=== PATIENT | female | born 1995 | race Caucasian/White ===

== ENCOUNTER 2020-12-17 07:59 | Inpatient (IN) ==
--- NOTE | 2020-12-17 11:05 | Obstetrical Progress Note ---
Date of Service December 17, 2020 Assessment & Plan (1) with 36 completed weeks gestation: (2) Uterine contractions: Plan: Will continue to monitor for labor. Discussed that can't encourage labor at this point but if she demonstrates cervical change, that is labor and will admit. She notes contractions rate a 6/10 currently. vertex by ultrasound. Will continue to monitor. fetus category one. Subjective Patient is a 25yowf who presents at 36 4/7 weeks with bleeding, passing small clots and cramping. hx significant for 36 week delivery that was rapid and presented quickly after srom. essentially uncomplicated. Declined gregoria. GBS negative. Physical Exam Physical Exam: cx--3-4/50/-2, bloody show, unchanged over two hours toco--q3-5min efm--130s with mod variaiblity, accels to 150s, no decels Results & Data ([facility]) Vital Signs (Past 12 Hours) Vital Signs Temp Pulse Resp BP 12/17/20 08:14 37.0 C 18 12/17/20 08:11 115 H 134/95 PG Care Time/CCT Total # of Minutes Spent Total Time Spent with Patient: Total time spent is greater than 50% in coordination of care (as documented) at patient's floor/unit and/or counseling patient: Coding Level of Care Code None Diagnoses with 36 completed weeks gestation Z3A.36 Uterine contractions O47.9
--- NOTE | 2020-12-17 12:39 | Obstetrical Progress Note ---
Date of Service December 17, 2020 Assessment & Plan (1) Uterine contractions: (2) with 36 completed weeks gestation: Plan: this may be a very small change but not enough to call active labor. Recommend recheck in 2 hours. Currently offered iv hydration and morphine rest. Neither would stop real labor but may take edge off contractions. She declines morphine and will take fluid bolus. REcheck in 2 hours. Subjective Paitent notes contractions getting more uncomfortable Physical Exam Physical Exam: cx--4/50/-2 toco--q3-5min efm--category one Results & Data ([facility]) Vital Signs (Past 12 Hours) Vital Signs Temp Pulse Resp BP 12/17/20 11:06 36.9 C 96 H 18 110/74 12/17/20 08:14 37.0 C 18 12/17/20 08:11 115 H 134/95 PG Care Time/CCT Total # of Minutes Spent Total Time Spent with Patient: Total time spent is greater than 50% in coordination of care (as documented) at patient's floor/unit and/or counseling patient: Coding Level of Care Code None Diagnoses Uterine contractions O47.9 with 36 completed weeks gestation Z3A.36
[2020-12-17] MEDS ORDERED: LACTATED RINGER'S 1,000 ML IV PRN (12:50)
[2020-12-17] MEDS ORDERED: OXYTOCIN 30 UNITS/500 ML BAG IV PRN ×2 (14:37→22:37)
--- NOTE | 2020-12-17 14:40 | Labor Progress Brief Note ---
Date of Service December 17, 2020 Subjective still uncomfortable with contractions Assessment & Plan (1) with 36 completed weeks gestation: (2) Uterine contractions: Plan: contractions have now made cervical change to qualify for active labor. Plan admit. gbs neg, check covid swab. Expectantly management. Make peds aware. anticipate . Fetus category one and reassuring. Physical Exam Physical Exam: cx--5/50/-2, bloody show toco--q3-5min efm--130s with accels to 150s, no decels Results & Data ([facility]) Vital Signs (Past 12 Hours) Vital Signs Temp Pulse Resp BP 12/17/20 11:06 36.9 C 96 H 18 110/74 12/17/20 08:14 37.0 C 18 12/17/20 08:11 115 H 134/95 Coding Level of Care Code None Diagnoses with 36 completed weeks gestation Z3A.36 Uterine contractions O47.9
[2020-12-17 15:08] LABS: Hematocrit (blood only) 38.1 % (37-47); Mean Corpuscular Hemoglobin 29.9 pg (25-34); Mean Corpuscular Hgb Conc 34.1 g/dL (32-36); Mean Corpuscular Volume 87.6 fL (80-100); Mean Platelet Volume 12.3 fL (7.4-10.4); Platelet Count 186 K/uL (130-400); RDW Coefficient of Variation 13.8 % (11.5-14.5); RDW Standard Deviation 44.2 fL (36.4-46.3); Red Blood Count 4.35 M/uL (4.2-5.4); White Blood Count 10.67 K/uL (4.8-10.8)
[2020-12-17] MEDS: LACTATED RINGER'S 1,000 ML IV PRN ×2 (15:40→20:45)
--- NOTE | 2020-12-17 17:55 | Labor Progress Brief Note ---
Date of Service December 17, 2020 Subjective notes contractions more painful, desires rom Assessment & Plan (1) with 36 completed weeks gestation: (2) Premature onset of labor: Plan: arom done, expectant management. fetus category one. anticipate . Admission and Anticipated Discharge Date Admission Date: December 17, 2020 Physical Exam Physical Exam: cx--5-6/75/-2 arom--clear toco--q3-5min, efm--120s with mod variability, accels to 150s, no decels Results & Data ([facility]) Vital Signs (Past 12 Hours) Vital Signs Temp Pulse Resp BP 12/17/20 15:10 36.6 C 16 12/17/20 15:08 91 H 124/75 12/17/20 11:06 36.9 C 96 H 18 110/74 12/17/20 08:14 37.0 C 18 12/17/20 08:11 115 H 134/95 Coding Level of Care Code None Diagnoses with 36 completed weeks gestation Z3A.36 Premature onset of labor O60.00
--- NOTE | 2020-12-17 20:23 | Labor Progress Brief Note ---
Date of Service December 17, 2020 Subjective getting very uncomfortable. Asking for pain meds. Assessment & Plan (1) Premature onset of labor: Plan: Discussed options for pain management. Will go with epidural. Fetus reassuring. Anticipate . Admission and Anticipated Discharge Date Admission Date: December 17, 2020 Physical Exam Physical Exam: cx--6/100/0 toco--q2-3min efm--category one. Results & Data ([facility]) Vital Signs (Past 12 Hours) Vital Signs Temp Pulse Resp BP 12/17/20 17:57 36.7 C 16 12/17/20 17:56 101 H 127/74 12/17/20 15:10 36.6 C 16 12/17/20 15:08 91 H 124/75 12/17/20 11:06 36.9 C 96 H 18 110/74 Coding Level of Care Code None Diagnoses Premature onset of labor O60.00
[2020-12-17] MEDS ORDERED: SODIUM CHLORIDE 0.9% INJ 10 ML VIAL ONE (20:26)
[2020-12-17] MEDS ORDERED: BUPIVACAINE 0.25% 30 ML VIAL ONE (20:26)
[2020-12-17] MEDS ORDERED: fentaNYL 2MCG/ML ROPIVACAINE 1.25MG/ML 100 ML BAG EPI ONE (20:26)
[2020-12-17] MEDS ORDERED: ePHEDrine sulfate 50 MG/ML AMP ONE (20:26)
--- NOTE | 2020-12-17 20:39 | Anesthesiology Consultation ---
Date of Service December 17, 2020 Assessment & Plan (1) Encounter for pre-operative examination: Chart Review Chart Review: Acceptable Risk for Labor Epidural Consults Requested none ASA ASA2 Proposed Anesthesia Anesthesia Type: Labor Epidural Risk / Benefits Reviewed With: PT / POA / Parent / Guardian, Accepts Plan and Informed Consent Obtained History Height/Weight Height: 5 ft 2 in Weight: 97.069 kg Allergies Allergy/AdvReac Type Severity Reaction Status Date / Time No Known Allergies Allergy Verified 12/14/20 16:18 Medications Home Medications Medication Instructions Recorded Confirmed Last Taken prenat.vits,sol,mfk-nwdw-rdeyz 1 tab PO PM 04/25/19 12/17/20 12/16/20 Active Medications Generic Name Dose Route Start Last Admin Trade Name Freq PRN Reason Stop Dose Admin Lactated Ringer's 1,000 mls @ 125 mls/hr 12/17/20 14:37 12/17/20 20:21 Lr IV 12/19/20 14:36 999 mls/hr .Q8H PRN Infusion L&D Protocol Protocol Past Medical History Medical History Attention deficit disorder Chronic constipation Exercise / Class Metabolic Activity II 4-5 Yardwork/Stairs/Walk up hill Past Family History Family History Grandfather (Maternal) Colorectal cancer Grandmother (Paternal) Myocardial infarction Denies family history of Ovarian cancer Prostate cancer Breast cancer Past Surgical History Surgical History Hx of tonsillectomy S/P nasal septoplasty S/P rhinoplasty Past Anesthesia History No Hx of Anesthesia Complications and No Family Hx of Anesthesia Complications History of PONV No Hx of PONV and No Hx of Motion Sickness Social History Smoking Status: Never smoker Hx Alcohol Use: No Hx Substance Use: No Physical Exam Vital Signs Last Vital Signs Temp 98.1 F 12/17/20 17:57 Pulse 98 H 12/17/20 20:25 Resp 16 12/17/20 17:57 BP 127/74 12/17/20 17:56 Pulse Ox 90 12/17/20 20:25 ENMT Mouth: no dentition abnormality Thyromental Distance: > or= 3.5 Finger Breadths Mallampati Class: II Neck normal visual inspection Respiratory normal respiratory effort Auscultation: lungs clear to auscultation bilaterally Cardiovascular Rate/Rhythm: regular rate and regular rhythm Testing Laboratory Results 12/17/20 14:43
[2020-12-17] MEDS: fentaNYL citrate 100 MCG/2 ML VIAL ONE ×2 (20:53→21:04)
[2020-12-17] MEDS ORDERED: NALBUPHINE HCL INJ 10 MG/ML AMP IV PRN (21:01)
[2020-12-17] MEDS ORDERED: fentaNYL 2MCG/ML ROPIVACAINE 1.25MG/ML 100 ML BAG EPI PRN (21:01)
[2020-12-17] MEDS ORDERED: ONDANSETRON INJ 2 MG/ML 2 ML VIAL IV PRN (21:01)
[2020-12-17] MEDS ORDERED: ePHEDrine sulfate 50 MG/ML AMP IV PRN (21:01)
[2020-12-17] MEDS ORDERED: NALOXONE HCL 0.4 MG/1 ML VIAL/CARP IV PRN (21:01)
[2020-12-17] MEDS ORDERED: diphenhydrAMINE 50 MG/ML VIAL IV PRN (21:01)
[2020-12-17] MEDS ORDERED: NALOXONE HCL 1 MG in SODIUM CHLORIDE 0.9% 1000ML 1,000 ML IV PRN (21:01)
--- NOTE | 2020-12-17 21:59 | Delivery Summary ---
Vaginal Delivery Summary Date of Service December 17, 2020 Pre-operative Diagnosis: at 36 4/7 weeks premature onset of labor Post-operative Diagnosis: same Procedure: arom epidural second degree laceration and repair EBL: 350cc Anesthesia: epidural Procedure: The patient presented to labor and delivery with contractions at 36 4/7 weeks. she was observed and made cervical change indicating labor. She was admitted and then had arom for clear fluid. She then received an epidural at 6 cm. After the epidural she progressed rapidly to 10cm/0-+1. The patient pushed for four contractions to deliver a viable male in antonia position. The nose and mouth were bulb suctioned on the perineum and the rest of the was then delivered without difficulty. The baby was vigorous. The nose and mouth were again bulb suctioned and the was placed in the maternal abdomen for drying and attention. Cord was clamped and cut at one minute of life. Cord blood and segment obtained. Placenta delivered spontaneous, intact with a three vessel cord. Cervix/sulci/rectum were intact. A second degree perineal laceration was repaired in the normal standard fashion. An area of perineal skin was excised that had healed poorly. Hemostasis obtained with dilute pitocin and fundal massage. Apgars were 7/8. Mother and baby doing well at the end of the delivery. Vaginal Delivery Summary and 2nd Degree LAC [facility] Vaginal Delivery Charge Delivery Type Details: and 2nd Degree LAC
[2020-12-17] MEDS ORDERED: BENZOCAINE 20% AER SPR 82.5 GM CAN EXT PRN ×2 (22:02→22:37)
[2020-12-17] MEDS ORDERED: DIPHTHERIA/TETANUS/PERTUSSIS 0.5 ML SYR/VIAL IM ONE (22:37)
[2020-12-17] MEDS ORDERED: oxyCODONE/ACETAMINOPHEN 5mg/325mg TAB PO PRN (22:37)
[2020-12-17] MEDS ORDERED: SUPERCREAM 0.870% 15 GM JAR EXT PRN (22:37)
[2020-12-17] MEDS ORDERED: bisacodyL 10 MG SUPP PR PRN (22:37)
[2020-12-17] MEDS ORDERED: HYDROCORTISONE ACETATE 25 MG SUPP PR PRN (22:37)
[2020-12-17] MEDS ORDERED: ACETAMINOPHEN 325 MG TAB PO PRN (22:37)
[2020-12-18] MEDS: IBUPROFEN 600 MG TAB PO PRN ×3 (03:25→20:58)
--- NOTE | 2020-12-18 05:52 | Obstetrical Progress Note ---
Date of Service <Hu Ho DO - Last Filed: 12/18/20 06:44> December 18, 2020 Assessment & Plan <Hu Ho DO - Last Filed: 12/18/20 06:44> (1) Encounter for care and examination after delivery: s/p vaginal delivery PPD1 - O+, GBS-, RI - Vitals WNL. - Encouraged . - Patient would like to go home tomorrow morning if possible. Will continue to monitor progress today. <Latoya Bach MD, FACOG - Last Filed: 12/18/20 07:02> (1) Encounter for care and examination after delivery: Subjective <Hu Ho DO - Last Filed: 12/18/20 06:44> Ambulation: ambulating normally Voiding: no voiding problems Passing Gas:: Yes Diet Tolerance:: regular diet Lochia:: Small Feeding Type:: breast feeding Current Pain Level(1-10): 0 Review of Systems Denies fever, chills, sweats Denies shortness of breath, difficulty breathing, chest pain, palpitations, chest pressure. Denies breast pain. Denies dysuria. Denies headache or changes in vision <Latoya Bach MD, FACOG - Last Filed: 12/18/20 07:02> Feeding Type:: bottle feeding (and plans to breast pump) Physical Exam <Hu Ho DO - Last Filed: 12/18/20 06:44> General: Alert, oriented. No acute distress. Cardiac: Regular rate and rhythm, no murmurs/rubs/gallops. Respiratory: Clear to auscultation bilaterally a/p, no wheezes/rales/rhonchi. No increased work of breathing. Symmetrical chest rise. No respiratory distress. Uterus: Uterine fundus firm, palpable at umbilicus. Lower Extremities: No lower extremity edema or swelling. No deep calf pain. Results & Data ([facility]) <Hu Ho DO - Last Filed: 12/18/20 06:44> Vital Signs (Past 12 Hours) Vital Signs Temp Pulse Pulse Resp BP BP Pulse Ox 12/18/20 03:25 36.5 C 88 16 122/83 98 12/18/20 00:30 36.5 C 86 17 133/79 97 12/17/20 23:27 91 H 120/66 12/17/20 22:58 77 113/67 12/17/20 22:56 128/67 12/17/20 22:41 70 123/66 12/17/20 22:12 78 116/55 L 12/17/20 21:55 36.6 C 88 16 124/57 L 12/17/20 21:42 88 119/56 L 12/17/20 21:30 22 12/17/20 21:24 92 H 122/82 12/17/20 21:19 78 129/67 12/17/20 21:13 83 109/55 L 12/17/20 21:08 80 108/59 L 12/17/20 21:02 82 105/52 L 12/17/20 21:00 90 18 101/58 L 12/17/20 20:58 84 103/55 L 12/17/20 20:56 82 104/53 L 12/17/20 20:54 85 109/61 12/17/20 20:25 98 H 90 12/17/20 20:10 36.8 C 12/17/20 17:57 36.7 C 16 12/17/20 17:56 101 H 127/74 <Latoya Bach MD, FACOG - Last Filed: 12/18/20 07:02> Co-Signing Physician Notes Resident Physician Supervision Note: I was present with Dr. Ho during the history and exam. I discussed the case with the resident and agree with the findings and plan as documented in the note. Any exceptions or clarifications are listed here: patient doing well. bottle feeding but hopes to breast pump for at least 6wks. eating, voiding, ambulating without problem. ff 1 down nt. nt calves. cor rrr, lungs ctab. ppd #1 s/p . doing well routine care. Documented By: Latoya Bach MD, FACOG Resident Activity Tracking <Hu Ho DO - Last Filed: 12/18/20 06:44> Resident Involvement: Resident Care Provided Care Provided: OB Delivery
[2020-12-18 06:23] LABS: Hemoglobin 11.4 g/dL (12.0-16.0)
[2020-12-18] MEDS ORDERED: PRENATAL VITAMIN 1 TAB PO SCH (09:00)
[2020-12-18] MEDS ORDERED: DOCUSATE SODIUM 100 MG CAP PO SCH (09:00)
[2020-12-18] MEDS: PRENATAL VITAMIN 1 TAB PO SCH (16:01)
[2020-12-18] MEDS: DOCUSATE SODIUM 100 MG CAP PO SCH ×2 (16:01→21:38)
[2020-12-18] MEDS ORDERED: bisacodyL 5 MG TABEC PO SCH (20:00)
[2020-12-19] MEDS: DOCUSATE SODIUM 100 MG CAP PO SCH (07:48)
[2020-12-19] MEDS: IBUPROFEN 600 MG TAB PO PRN (07:49)
[2020-12-19] MEDS: PRENATAL VITAMIN 1 TAB PO SCH (07:49)
--- NOTE | 2020-12-19 09:42 | Obstetrical Progress Note ---
Date of Service December 19, 2020 Assessment & Plan (1) Encounter for care and examination after delivery: doing well, stable for d/c home, instructions reviewed. f/u 6 wk pp check. Day #:: 2 Subjective Ambulation: ambulating normally Voiding: no voiding problems Diet Tolerance:: regular diet Lochia:: Small Feeding Type:: bottle feeding (breast pumping) denies pain issues. Constitutional: + as per Subjective / HPI Physical Exam Constitutional WD/WN, vitals as above Respiratory normal respiratory effort, lungs clear to auscultation Cardiovascular Rate/Rhythm: regular rate and regular rhythm Gastrointestinal (Abdomen) Inspection/Auscultation: abdomen normal to inspection Percussion/Palpation: abdomen soft; abdomen nontender fundus firm 2 cm below umbilicus Musculoskeletal nt calves tr edema Neurologic grossly normal Psychiatric A+Ox3, euthymic affect Results & Data ([facility]) Vital Signs (Past 12 Hours) Vital Signs Temp Pulse Resp BP Pulse Ox 12/18/20 23:00 97.5 F L 70 16 134/85 98
== END 2020-12-19 12:00 | disposition home or self-care (01) | DRG 807 ==
LOC: OPB 07:59 → 4S1 08:00 → 4S2 12-18 00:06
DX: Z3A.36 36 weeks gestation of pregnancy; Z37.0 Single live birth; O70.1 Second degree perineal laceration during delivery; O60.14X1 Preterm labor third trimester with preterm delivery third trimester, fetus 1